=== PATIENT | male | born 1955 | race Caucasian/White ===

== ENCOUNTER 2022-09-15 07:46 | Emergency (ER) | payer MEDICARE ==
[~2022-09-15] VITALS: Ht 172.7 cm; Wt 79.4 kg
== END 2022-09-15 09:14 | disposition home or self-care (01) ==
LOC: ED 07:46
DX: N40.1 Benign prostatic hyperplasia with lower urinary tract symptoms (principal); R33.8 Other retention of urine; Z98.890 Other specified postprocedural states; F10.10 Alcohol abuse, uncomplicated